=== PATIENT | female | born 1990 | race Caucasian/White ===

== ENCOUNTER 2024-04-04 19:13 | Emergency (ER) | payer BC ==
[~2024-04-04] VITALS: Ht 157.5 cm; Wt 99.8 kg
[2024-04-04] MEDS ORDERED: DEXAMETHASONE SOD PHOS INJ 4 MG/ML SDV ONE (19:55)
[2024-04-04] MEDS ORDERED: ONDANSETRON ODT4 MG PO (19:55)
[2024-04-04] MEDS ORDERED: BENZONATATE100 MG PO (19:55)
[2024-04-04] MEDS ORDERED: ACETAMINOPHEN 325 MG TAB ONE (19:55)
[2024-04-04] MEDS: DEXAMETHASONE SOD PHOS 10 MG/1 ML VIAL IM ONE (20:04)
[2024-04-04] MEDS: ACETAMINOPHEN 325 MG TAB PO ONE (20:05)
[2024-04-04 20:37] VITALS: PULSE 106; RESP 20; TEMP 99.8; O2SAT 95
== END 2024-04-04 20:38 | disposition home or self-care (01) ==
LOC: FSED 19:51
DX: R50.9 Fever, unspecified (principal); J06.9 Acute upper respiratory infection, unspecified; R05.9 Cough, unspecified; Z11.52 Encounter for screening for COVID-19
CPT/HCPCS: 0223U; 87400; 99283; J1100 ×2